=== PATIENT | female | born 1965 | race Hispanic/Latino ===

== ENCOUNTER 2018-05-25 11:52 | Emergency (ER) | payer OTHER | END 2018-05-25 14:18 | disposition home or self-care (01) | LOC: EDH 11:52 | DX: J21.9 Acute bronchiolitis, unspecified (principal); E11.9 Type 2 diabetes mellitus without complications; I10 Essential (primary) hypertension; Z90.49 Acquired absence of other specified parts of digestive tract; Z90.710 Acquired absence of both cervix and uterus | CPT/HCPCS: 71045; 84484; 93005 ==

== ENCOUNTER 2019-05-01 15:46 | Emergency (ER) | payer MEDICAID, OTHER ==
[2019-05-01] MEDS ORDERED: MORPHINE SULFATE 2 MG/ML 1ML SYG ONE (16:07)
[2019-05-01] MEDS ORDERED: MORPHINE SULFATE 4 MG/1ML SYG ONE (16:07)
[2019-05-01] MEDS ORDERED: ONDANSETRON ODT 4 MG TAB ONE (16:08)
== END 2019-05-01 16:59 | disposition home or self-care (01) ==
LOC: EDH 15:46
DX: S63.591A Other specified sprain of right wrist, initial encounter (principal); S80.02XA Contusion of left knee, initial encounter; S70.02XA Contusion of left hip, initial encounter; E11.9 Type 2 diabetes mellitus without complications; I10 Essential (primary) hypertension; W18.39XA Other fall on same level, initial encounter; Y93.01 Activity, walking, marching and hiking; Y92.89 Other specified places as the place of occurrence of the external cause; Y99.8 Other external cause status
CPT/HCPCS: 73110; 73502; 73562; 99284; J2270

== ENCOUNTER 2019-09-04 15:11 | Emergency (ER) | payer MEDICAID, OTHER ==
[2019-09-04] MEDS ORDERED: LABETALOL 20 MG/4 ML DISP.SYRIN IV ONE (15:23)
== END 2019-09-04 16:17 | disposition home or self-care (01) ==
LOC: EDH 15:11
DX: R07.89 Other chest pain (principal); J06.9 Acute upper respiratory infection, unspecified; E11.9 Type 2 diabetes mellitus without complications; I10 Essential (primary) hypertension; Z90.710 Acquired absence of both cervix and uterus; Z90.49 Acquired absence of other specified parts of digestive tract
CPT/HCPCS: 93005